=== PATIENT | female | born 1990 | race Caucasian/White ===

== ENCOUNTER 2020-01-30 05:55 | Inpatient (IN) | payer MEDICAID ==
[~2020-01-30] VITALS: Ht 167.6 cm; Wt 63.5 kg
[2020-01-30 05:59] VITALS: BP 132/79
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
--- NOTE | 2020-01-30 06:00 | NUR ---
PD AT BEDSIDE. ON HOLD. WILL CONTINUE MONITOR 1:1 WITH ED STAFF AT BEDSIDE.
--- NOTE | 2020-01-30 06:43 | NUR ---
LAB AT BEDSIDE.
--- NOTE | 2020-01-30 06:53 | NUR ---
PT AMBULATED TO RESTROOM STEADY GAIT.
[2020-01-30 06:56] LABS: BASOPHILS # (AUTO) 0.1 K/uL (0.00-0.22); BASOPHILS % (AUTO) 1.5 % (0.0-2.0); EOSINOPHILS # (AUTO) 0.1 K/uL (0-0.4); EOSINOPHILS % (AUTO) 2.1 % (0.0-4.0); HEMATOCRIT 38.6 % (36-48); HEMOGLOBIN 12.9 g/dL (12.0-16.0); LYMPHOCYTES % (AUTO) 33.5 % (20.5-51.1); MEAN CORPUSCULAR HEMOGLOBIN 31 pg (27-31); MEAN CORPUSCULAR HGB CONC 33 g/dL (33-37); MEAN CORPUSCULAR VOLUME 93.5 fL (80-94); MONOCYTES # (AUTO) 0.4 K/uL (0.8-1.0); NEUTROPHILS # (AUTO) 3.4 K/uL (1.8-7.7); NEUTROPHILS % (AUTO) 55.9 % (42.2-75.2); PLATELET COUNT (AUTO) 264 K/uL (140-450); RED BLOOD CELL COUNT(AUTO) 4.13 MIL/uL (4.20-5.40); RED CELL DISTRIBUTION WIDTH 12.9 % (11.6-13.7)
[2020-01-30 07:10] LABS: ALBUMIN 3.5 g/dL (3.4-5.0); ANION GAP 11.2 (8-16); ASPARTATE AMINOTRANSFERASE 16 U/L (15-37); CARBON DIOXIDE 31.5 mmol/L (21-32); CHLORIDE 106 mmol/L (98-107); CREATININE 0.7 mg/dL (0.6-1.3); GFR ARICAN-AMERICAN 128 mL/min (>90); GLUCOSE 114 mg/dL (74-106); POTASSIUM 3.7 mmol/L (3.5-5.1); SODIUM SERUM 145 mmol/L (136-145); TOTAL BILIRUBIN 0.1 mg/dL (0.0-1.0); UREA NITROGEN, BLOOD 9 mg/dL (7-18)
[2020-01-30 07:12] LABS: ACETAMINOPHEN < 0.5 ug/ml (10-30); SALICYLATE < 2.8 mg/dL (2.8-20.0)
--- NOTE | 2020-01-30 07:28 | NUR ---
BEDSIDE REPORT GIVEN TO LEX SANDERS FOR CONTINUITY OF CARE. PT IN STABLE CONDITION.
--- NOTE | 2020-01-30 07:46 | NUR ---
TELEPSYCH SPEAKING WITH PATIENT
[2020-01-30 08:24] LABS: BARBITURATE, URINE NEGATIVE ng/ml (NEG <=200)
[2020-01-30 08:25] LABS: BENZODIAZEPINE, URINE NEGATIVE ng/mL (NEG <=200); CANNABINOID, URINE POSITIVE ng/mL (NEG <=50); COCAINE, URINE NEGATIVE ng/mL (NEG <=300); OPIATE, URINE NEGATIVE ng/mL (NEG <=2000); PHENCYCLIDINE SCREEN,URINE NEGATIVE ng/mL (NEG <=25)
--- NOTE | 2020-01-30 08:30 | NUR ---
Patient appears to be resting in bed. Vital Signs within normal limits. Respirations even and unlabored. vvs, MC/pd at bedside, sitter-emt Alaina at at bedside. pt eat 75% of breakfast.
--- NOTE | 2020-01-30 09:10 | NUR ---
Pt report given to MARILYN Hillman Transfer of care at this time.
--- NOTE | 2020-01-30 10:07 | NUR ---
PT RESTING IN BED, AWAKE AND ALERT, VSS, NAD.
[2020-01-30] MEDS ORDERED: DOCUSATE SODIUM 100 MG GELCAP PO PRN (10:55)
[2020-01-30] MEDS ORDERED: ONDANSETRON 4 MG/2 ML VIAL IM/IVP PRN (10:55)
[2020-01-30] MEDS ORDERED: ACETAMINOPHEN 325 MG TAB PO PRN (10:55)
--- NOTE | 2020-01-30 11:08 | NUR ---
XRAY AT BEDSIDE
--- NOTE | 2020-01-30 11:15 | NUR ---
pt on M/S hold for room 124 pre charge account identification clerk Joey
[2020-01-30 11:44] LABS: MAGNESIUM 1.8 mg/dL (1.8-2.4); PHOSPHORUS 3.9 mg/dL (2.5-4.9); THYROID STIMULATING HORMONE 0.9 uIU/mL (0.34-3.74)
--- NOTE | 2020-01-30 12:34 | NUR ---
Pt transferred to Med/Surg via w/c with kelley Hillman
--- NOTE | 2020-01-30 12:40 | NUR ---
Patient will be admitted to care of DR ALONSO. Admited to MED SURG. Will go to room 124B. Belongings list completed. Report to CY SANDERS.
[2020-01-30 12:45] VITALS: BP 119/79
--- NOTE | 2020-01-30 12:45 | NUR ---
RECEIVED PATIENT FROM ED NURSE. PT RESTING IN BED. ABLE TO MAKE NEEDS KNOWN. RESPIRATIONS EVEN AND UNLABORED WITH NO SOB OR RESPIRATORY DISTRESS. SKIN WARM AND DRY TO TOUCH. MRSA SWAB COLLECTED. SHIFT ENVIRONMENTAL ROOM SAFETY CHECKLIST COMPLETED. PT CHANGED INTO GOWN AND APPLIED NOT SLIP SOCKS. PT BELONGINGS ARE WITH SECURITY. NO CONTRABAND NOTED. VITAL SIGNS UPON ADMISSION: 119/79 BP, 82 HR, 19 RR, 100% SPO2 ON RA, AND 98.0 TEMP. SAFETY MEASURES IN PLACE. WILL CONTINUE TO MONITOR
--- NOTE | 2020-01-30 14:30 | NUR ---
HOURLY ROUNDING. PT RESTING IN BED. ABLE TO MAKE NEEDS KNOWN. RESPIRATIONS EVEN AND UNLABORED WITH NO SOB OR RESPIRATORY DISTRESS. SKIN WARM AND DRY TO TOUCH. SAFETY MEASURES IN PLACE. WILL CONTINUE TO MONITOR
[2020-01-30 15:38] LABS: APPEARANCE,URINE CLEAR (CLEAR); BILIRUBIN,URINE NEGATIVE (NEGATIVE); BLOOD, URINE NEGATIVE (NEGATIVE); COLOR,URINE YELLOW (YELLOW); LEUKOCYTE ESTERASE ,URINE NEGATIVE (NEGATIVE); NITRITE, URINE NEGATIVE (NEGATIVE); PH,URINE 5.5 (5.0-9.0); UGLUCOSE NEGATIVE (NEGATIVE)
[2020-01-30 16:00] VITALS: BP 126/76
--- NOTE | 2020-01-30 17:00 | NUR ---
ASSISTED PATIENT TO THE BATHROOM AND BACK TO BED. SAFETY MEASURES IN PLACE. WILL CONTINUE TO MONITOR
--- NOTE | 2020-01-30 18:15 | NUR ---
HOURLY ROUNDING. PT EATING DINNER. NO SIGNS OF DISTRESS NOTED. SAFETY MEASURES IN PLACE. WILL CONTINUE TO MONITOR.
--- NOTE | 2020-01-30 19:10 | NUR ---
ENDORSED AT BEDSIDE WITH NIGHTSHIFT NURSE. PT IS STABLE
--- NOTE | 2020-01-30 19:11 | NUR ---
RECEIVED PATIENT FROM AM SHIFT NURSE. 5150 HOLD; W/ SITTER AT BEDSIDE. PT RESTING IN BED. ABLE TO MAKE NEEDS KNOWN. RESPIRATIONS EVEN AND UNLABORED WITH NO SOB OR RESPIRATORY DISTRESS. SKIN WARM AND DRY TO TOUCH. SAFETY MEASURES IN PLACE. WILL CONTINUE TO MONITOR
--- NOTE | 2020-01-30 20:55 | NUR ---
DR NEWMAN AT BEDSIDE . DR'S CONSULT 1ST VISIT, TALKED TO PATIENT, PT RESPONDING WELL.
[2020-01-30 21:00] VITALS: BP 118/62
--- NOTE | 2020-01-30 22:09 | NUR ---
PT SLEEPING COMFORTABLY. NO COMPLAINTS OF PAIN, NO RESPIRATORY DISTRESS. WILL CONTINUE TO MONITOR FOR ANY SIGNS AND SYMPTOMS OF MENTAL DIFFICULTIES. KEPT SAFE AND VIGILANT WATCH FOR SI
[2020-01-31 04:00] VITALS: BP 118/63
--- NOTE | 2020-01-31 04:30 | NUR ---
GOT UP AND WENT TO BATHROOM, VOIDED ONCE. WENT BACK TO BED AND ASKED FOR AN EXTRA BLANKET.
--- NOTE | 2020-01-31 05:23 | NUR ---
LAB DRAW DONE MY THE BURLAP SPREADER, PT TOLERATED PROCEDURE WELL
--- NOTE | 2020-01-31 06:04 | NUR ---
PT STILL SLEEPING, BUT EASILY AROUSABLE, CALM, WILL ENDORSE TO NEXT SHIFT.
[2020-01-31] MEDS ORDERED: MULTIVITAMIN-12 10 ML, THIAMINE 100 MG, MAGNESIUM SULFATE 50% 2,000 MG, FOLIC ACID 1 MG... IV SCH ×5 (06:40)
[2020-01-31] MEDS ORDERED: LORazepam 2 MG/ML VIAL IM/IVP PRN (06:40)
--- NOTE | 2020-01-31 07:30 | NUR ---
RECEIVED PT FROM INTERNATIONAL SALES MANAGER NURSE JABARI-MARILYN. PT RESTING IN BED. AOX4, 5150 SITTER. DISCUSSED PLAN OF CARE AND PT VERBALIZED UNDERSTANDING. IV SITE LEFT HAND #22G SL. NO S/S OF RESPIRATORY DISTRESS OR DISCOMFORT NOTED AT THIS TIME. WILL CONTINUE TO MONITOR.
[2020-01-31 08:00] VITALS: BP 106/66
--- NOTE | 2020-01-31 08:25 | NUR ---
PATIENT HAS BEEN SCREENED AND CATEGORIZED LOW NUTRITION RISK. PATIENT WILL BE SEEN WITHIN 7 DAYS OF ADMISSION. 02/05/[address]
--- NOTE | 2020-01-31 08:56 | NUR ---
BANANA BAG GIVEN AND TOLERATED WELL. NO S/S OF RESPIRATORY DISTRESS OR DISCOMFORT NOTED AT THIS TIME. WILL CONTINUE TO MONITOR.
--- NOTE | 2020-01-31 09:43 | NUR ---
PT REQUESTING STOOL SOFTNER DUE TO CONSTIPATION. COLACE GIVEN AND TOLERATED WELL. PRUNE JUICE ALSO GIVEN. NO S/S OF RESPIRATORY DISTRESS OR DISCOMFORT NOTED AT THIS TIME. WILL CONTINUE TO MONITOR.
--- NOTE | 2020-01-31 10:45 | NUR ---
[employer]east [employer] Attendant Note: Basic Screen: Yes High Risk DC Screen Gananda: HENRIK HONEYCUTT Home Relationship: MOTHER Pre-Admission Living Arrangements: Other Prior ADL Independent Current Home Health Name/Tel: N/A Current DME/02 Name/Tel: N/A Current Hospice Name/Tel: N/A Current Dialysis Name/Tel: N/A Healthcare Decision Maker: Patient Advance Directive No Physician Orders for Life Sustaining Treatment Form No Patient/Family Have Educational Needs No Information Taught: Community Resources Person Taught: Patient Teaching Tools: Verbal Factors Affecting Learning: None Participation Level: Active Evaluation: Verbalizes Understanding Needs Additional Education: No Discipline: Case Mgt/Social Svcs Tentative Discharge Plan/Destination: No Needs Identified Will require assistance post discharge: No Referred to Telephone Order Supervisor: No Tentative Discharge Plan Summary: Patient is a 29-year-old female admitted for suicidal ideation. Patient has no pertinent PMHX. Patient stated she is homeless but has an address to return to with her mother, but refused to stay there. SW met with patient at bedside to verify demographics. Patient stated she has been staying with her significant other at different hotels across [place]. Patient denied current suicial ideation and AH/VH. Patient requested to add friend Henri Fleming [phone] to face sheet. Patient reported no mental health history and stated she had a panic attack and started to verbally act out with the police in fear she was going to detention. Patient denies substance abuse history. SW provided room and board resources, homeless resources, and mental health resources. Tentative discharge plan is for patient to return to her mother's home. Signature: KRYSTAL Alanis Date: Jan 31, 2020 Time: 10:44
--- NOTE | 2020-01-31 10:51 | NUR ---
DISCHARGE PLANNING: THIS IS A 29 Y/O FEMALE PATIENT FROM HOME, WHO WAS BROUGHT IN BY PD FOR SUICIDAL IDEATION. DENIES ANY PAST MEDICAL HISTORY. INITIAL DIAGNOSIS OF SUICIDAL IDEATION. CURRENT LABS INCLUDE WBC 6.0, H/H 12.9/38.6, NA/K 145/3.7, BUN/CREA 9/0.7. UDS SHOWED POSITIVE FOR AMPHETAMINES AND CANNABINOIDS. PSYCHE CONSULT IN PLACE. ON BANANA BAG. CXR NORMAL. DC PLAN PENDING IN PATIENT PSYCHE PLACEMENT.
--- NOTE | 2020-01-31 11:00 | NUR ---
PT RESTING IN BED. NO S/S OF RESPIRATORY DISTRESS OR DISCOMFORT NOTED AT THIS TIME. WILL CONTINUE TO MONITOR.
[2020-01-31 13:00] VITALS: BP 120/84
[2020-01-31] MEDS ORDERED: BISACODYL 5 MG TABEC PO PRN (13:05)
[2020-01-31] MEDS ORDERED: DOCUSATE SODIUM 100 MG GELCAP PO SCH (13:30)
--- NOTE | 2020-01-31 14:13 | NUR ---
SCHEDULED MEDICATION COLACE GIVEN AND TOLERATED WELL. NO S/S OF RESPIRATORY DISTRESS OR DISCOMFORT NOTED AT THIS TIME. WILL CONTINUE TO MONITOR.
--- NOTE | 2020-01-31 15:44 | NUR ---
PD CALLED AND NEEDS TO KNOW WHEN PT IS DISCHARGED/TRANSFERRED. PLEASE CALL AND LET DISPATCH KNOW UPDATE.
[2020-01-31] MEDS ORDERED: VITB1I PO (17:45)
[2020-01-31] MEDS ORDERED: FOLI0.8T PO (17:45)
[2020-01-31] MEDS ORDERED: MULT-153 PO (17:45)
[2020-01-31] MEDS ORDERED: LIB25 PO ×2 (17:54→17:55)
--- NOTE | 2020-01-31 18:10 | NUR ---
Change of shift report endorsed to next shift
--- NOTE | 2020-01-31 19:30 | NUR ---
PD HAS BEEN CALLED AND WILL BE HERE WITHIN THE NEXT 15 MIN. PT STABLE. NO S.S OF RESPIRATORY DISTRESS OR DISCOMFORT.
--- NOTE | 2020-01-31 20:09 | NUR ---
PT DISCHARGED WITH SIGNED PAPERWORK, IV OUT AND NAME BAND OFF. [place] [employer] CALLED INSTRUCTED. A CRUISER CAME AND PARKED BY FRONT LOBBY AND REVIEWER SALES MET WITH PT SHE WAS BEING ESCORTED OUT. PT AOX4 IN STABLE CONDITION SPEAKING TO POLICE WITH BELONGINGS IN HAND.
[2020-02-01] MEDS ORDERED: DOCUSATE SODIUM 100 MG GELCAP PO SCH (09:00)
== END 2020-01-31 20:10 | disposition home or self-care (01) | DRG 812 ==
LOC: MED 05:55 → MTU 10:52
PROVIDERS: ADMIT General Practice; ATTEND General Practice
DX: T43.621A Poisoning by amphetamines, accidental (unintentional), initial encounter (principal); G92 Toxic encephalopathy; R45.851 Suicidal ideations; F17.210 Nicotine dependence, cigarettes, uncomplicated; F12.90 Cannabis use, unspecified, uncomplicated; K59.00 Constipation, unspecified; F32.9 Major depressive disorder, single episode, unspecified; Z56.0 Unemployment, unspecified; Z88.1 Allergy status to other antibiotic agents; Y92.89 Other specified places as the place of occurrence of the external cause; Z71.51 Drug abuse counseling and surveillance of drug abuser
CPT/HCPCS: 36415; 71045; 80053; 80305; 81003; 83735; 84100; 84436; 84443; 85025; 87081; 93005; 99285; A9153; G0480; G0482; J3411; J3475; J3490; J7030; Q0092

== ENCOUNTER 2021-06-09 19:53 | Emergency (ER) | payer MEDICAID, OTHER ==
[~2021-06-09] VITALS: Ht 175.3 cm; Wt 75.3 kg
[~2021-06-09 19:53] MED LIST: FOLI0.8T22 PO; LIB25 PO; VITB1I PO
[2021-06-09 19:55] VITALS: BP 110/87
--- NOTE | 2021-06-09 19:55 | NUR ---
NEL CHAUDHRY. TAKEN TO CHAIR B
--- NOTE | 2021-06-09 20:10 | NUR ---
PATIENT BIB [place] [employer]. PATIENT EXAMINED BY DR. VEE. PATIENT MEDICALLY CLEARED AND RELEASED IN CUSTODY IN STABLE CONDITION. ORIGINAL PRE-BOOK FORM GIVEN TO OFFICER SUAD, #[id number].
== END 2021-06-09 20:10 ==
LOC: MED 19:53
DX: S09.8XXA Other specified injuries of head, initial encounter (principal); X58.XXXA Exposure to other specified factors, initial encounter; Y93.89 Activity, other specified; Y92.89 Other specified places as the place of occurrence of the external cause; Y99.8 Other external cause status
CPT/HCPCS: 99283